=== PATIENT | female | born 1970 | race Caucasian/White ===

== ENCOUNTER → 2023-09-21 08:16 | Outpatient (REF) | payer OTHER, SELFPAY | LOC: WDC 08:16 | PROVIDERS: ATTENDING PHYSICIAN Obstetrics & Gynecology; FAMILY PHYSICIAN Internal Medicine | DX: Z12.31 Encounter for screening mammogram for malignant neoplasm of breast (principal) | CPT/HCPCS: 77063; 77067 ==

== ENCOUNTER → 2024-01-10 14:01 | Outpatient (REF) | payer OTHER, SELFPAY | LOC: HWRAD 14:01 | PROVIDERS: ATTENDING PHYSICIAN Family Medicine | DX: R10.84 Generalized abdominal pain (principal) | CPT/HCPCS: 74177; Q9967 ==

== ENCOUNTER 2024-07-27 16:45 | Emergency (ER) | payer OTHER, SELFPAY ==
[2024-07-27 17:16] VITALS: BP 124/84
--- NOTE | 2024-07-27 17:16 | ED.GENMED ---
ED Provider Triage
<Aby Peterson PA-C - Last Filed: 07/27/24 17:19>
-
Patient seen by provider in Triage?: Seen in Triage
Attestation: A medical screening examination has been initiated by a qualified medical provider. Based on the assessment performed at this time, it has been determined that an emergent medical condition may exist and the patient has been informed
that further medical evaluation and possible additional diagnostic testing may be needed.
HPI: 53yoF here with lower abd pain x 2 days. C/o pressure in suprapubic region. Radiates to the RLQ and R flank. Thought she had a UTI. Went to PCP today and UA was normal. Sent to ED to r/o appendicitis.
GENERAL: Alert , in no apparent distress
EYE: No visual abnormalities.
NECK: Trachea midline
ENT: No visible abnormalities.
LUNGS: No acute respiratory distress
NEUROLOGICAL: Alert and oriented
SKIN: Skin intact. No visible changes.
MUSCULOSKELETAL: Moving extremities normally
PSYCH: Normal and appropriate interaction.
This is a medical evaluation conducted in person to initiate diagnostic evaluation and provide initial therapeutics. Please see further documentation by the treating clinician.
Abdominal labs, UA, and CT abdomen ordered.
History of Present Illness
<Aby Peterson PA-C - Last Filed: 07/27/24 17:19>
General
Chief Complaint: Abdominal Symptoms
Time Seen by Provider: 07/28/24 00:39
<Arron Rdz, DO - Last Filed: 07/28/24 00:54>
General
Source: patient
Exam Limitations: none
History of Present Illness
History of Present Illness:
See MDM
Past History
<Arron Rdz DO - Last Filed: 07/28/24 00:54>
Past History
ED Past Medical History: None
ED Past Surgical History: Orthopedic
Social History
Tobacco: Non-smoker
Alcohol: Occasional
Phy Exam
<Arron Rdz DO - Last Filed: 07/28/24 00:54>
Physical Exam
Physical Exam:
See MDM
Course
<Aby Peterson PA-C - Last Filed: 07/27/24 17:19>
Orders/Labs/Results
Orders:
Orders
07/27/24 17:19
CT Abd/pelvis W Iv Cont Urgent
Comment:
Reason For Exam: Suprapubic, RLQ pain radiating to the R flank
07/27/24 17:24
Complete Blood Count/With Diff Urgent
Comprehensive Metabolic Panel Urgent
Lipase Urgent
07/27/24 17:25
Urinalysis Reflex To Culture Urgent
Date Specimen was Collected: 07/27/24
Time Specimen was Collected: 17:20
07/28/24 00:46
LevoFLOXacin [Levaquin] 500 mg PO NOW STA
MetroNIDAZOLE [Flagyl] 500 mg PO NOW STA
07/28/24 00:50
Ketorolac [Toradol] 30 mg IV NOW STA
07/28/24 00:51
Ketorolac [Toradol] 30 mg .ROUTE .STK-MED ONE
Abnormal Lab Results
07/27/24
17:24
WBC 12.9 H 10^3/uL
(4.8-10.8)
RBC 4.08 L 10^6/uL
(4.20-5.40)
Hgb 11.7 L g/dL
(12.0-16.0)
Hct 34.7 L %
(37.0-47.0)
Abs Immat Gran (auto) 0.1 H 10^3/uL
(0-0.05)
Absolute Neuts (auto) 9.9 H 10^3/uL
(1.4-6.5)
Absolute Monos (auto) 0.8 H 10^3/uL
(0.1-0.6)
Immature Gran % 0.6 H %
(0-0.5)
Neutrophils % 76.9 H %
(42.2-75.2)
Lymphocytes % 14.1 L %
(20.5-51.1)
Sodium 134 L mmol/L
(135-145)
Glucose 107 H mg/dl
(70-99)
Total Bilirubin 1.7 H mg/dl
(0.2-1.3)
07/27/24 17:24
07/27/24 17:24
Vital Signs
Initial and Last Documented VS:
Initial Vital Signs
Temp Pulse Resp BP Pulse Ox
98.5 F 89 16 124/84 97
07/27/24 17:16 07/27/24 17:16 07/27/24 17:16 07/27/24 17:16 07/27/24 17:16
Last Documented Vital Signs
Temp Pulse Resp BP Pulse Ox
98.5 F 89 16 124/84 97
07/27/24 17:16 07/27/24 17:16 07/27/24 17:16 07/27/24 17:16 07/27/24 17:16
<Arron Rdz, DO - Last Filed: 07/28/24 00:54>
Orders/Labs/Results
Orders:
Orders
07/27/24 17:19
CT Abd/pelvis W Iv Cont Urgent
Comment:
Reason For Exam: Suprapubic, RLQ pain radiating to the R flank
07/27/24 17:24
Complete Blood Count/With Diff Urgent
Comprehensive Metabolic Panel Urgent
Lipase Urgent
07/27/24 17:25
Urinalysis Reflex To Culture Urgent
Date Specimen was Collected: 07/27/24
Time Specimen was Collected: 17:20
07/28/24 00:46
LevoFLOXacin [Levaquin] 500 mg PO NOW STA
MetroNIDAZOLE [Flagyl] 500 mg PO NOW STA
07/28/24 00:50
Ketorolac [Toradol] 30 mg IV NOW STA
07/28/24 00:51
Ketorolac [Toradol] 30 mg .ROUTE .STK-MED ONE
Abnormal Lab Results
07/27/24
17:24
WBC 12.9 H 10^3/uL
(4.8-10.8)
RBC 4.08 L 10^6/uL
(4.20-5.40)
Hgb 11.7 L g/dL
(12.0-16.0)
Hct 34.7 L %
(37.0-47.0)
Abs Immat Gran (auto) 0.1 H 10^3/uL
(0-0.05)
Absolute Neuts (auto) 9.9 H 10^3/uL
(1.4-6.5)
Absolute Monos (auto) 0.8 H 10^3/uL
(0.1-0.6)
Immature Gran % 0.6 H %
(0-0.5)
Neutrophils % 76.9 H %
(42.2-75.2)
Lymphocytes % 14.1 L %
(20.5-51.1)
Sodium 134 L mmol/L
(135-145)
Glucose 107 H mg/dl
(70-99)
Total Bilirubin 1.7 H mg/dl
(0.2-1.3)
07/27/24 17:24
07/27/24 17:24
Vital Signs
Initial and Last Documented VS:
Initial Vital Signs
Temp Pulse Resp BP Pulse Ox
98.5 F 89 16 124/84 97
07/27/24 17:16 07/27/24 17:16 07/27/24 17:16 07/27/24 17:16 07/27/24 17:16
Last Documented Vital Signs
Temp Pulse Resp BP Pulse Ox
98.5 F 89 16 124/84 97
07/27/24 17:16 07/27/24 17:16 07/27/24 17:16 07/27/24 17:16 07/27/24 17:16
<Arron Rdz, DO - Last Filed: 07/28/24 00:54>
MDM/Problems Addressed
Differential Diagnosis Includes:
HPI and MDM Narrative:
53-year-old female presenting for evaluation of abdominal pain. She saw her PCP and was instructed to go to the hospital to rule out acute appendicitis. On my exam, her pain is more mid abdomen and left lower quadrant. Blood work and a CT was
already performed for my evaluation. Her appendix is within normal limits but she does have evidence of mild uncomplicated diverticulitis. Given her penicillin allergy, will start Levaquin and Flagyl. She denies prior history of diverticulosis
and states her last colonoscopy was 3 years ago. Discussed follow-up with GI and her PCP
Physical exam
General: Well appearing and non-toxic
HEENT: protecting airway
Neck: appears supple
CV: No evidence of cyanosis
Resp: No accessory muscle use
Abd: Non-distended. Mild mid and left lower quadrant abdominal tenderness. No rebound
Extremities: No deformities
Neuro: alert
Psych: Normal affect
Skin: Intact
Problems Addressed including Acute and Chronic Conditions affecting care:
1. Acute uncomplicated diverticulitis
Acuity: acute
Prognosis: stable
Details: Will start Levaquin and Flagyl. Patient feels comfortable going home
Differential Diagnosis (but not limited to): Appendicitis, colitis, diverticulitis, kidney stone
Testing considered: Abdominal ultrasound
Drug therapy (if applicable): OTC meds, please see d/c instruction regarding Rx drugs
Amount and/or Complexity of Data Reviewed
Clinical info obtained from: Patient
External data reviewed: N/A
Labs I independently reviewed (but not limited to): Leukocytosis
Radiology: The CT scan was personally and independently reviewed. In addition, official CT report reviewed.
Pulse Ox: not hypoxic
EKG independently reviewed: N/A
Outdoor Emergency Care Technician: N/A
Critical Care: N/A
Risk of Complication:
Social Determinants of health: Good social support
Discussed with other providers: N/A
Escalation of Care includes Admit/Obs: After being observed in the Emergency Department, pt stable for discharge.
Occasional wrong word or 'sound a like' substitutions may have occurred due to the inherent limitations of voice recognition software. Read the chart carefully and recognize, using context, where substitutions have occurred.
<Arron Rdz DO - Last Filed: 07/28/24 00:54>
*Critical Care Note
Total Time (30-74mins, 75-104mins- exclusive of procedures): Not Applicable
ED Attending Note
<Aby Peterson PA-C - Last Filed: 07/27/24 17:19>
-
Portions of this chart may have been created with voice recognition software.� Occasional wrong word or��sound alike� substitutions may have occurred due to the inherent limitations of voice recognition software.
Discharge Plan
Departure
Patient Disposition: Home (Routine Discharge)
Date of Disposition: 07/28/24
Time of Disposition: 00:54
Patient with high blood pressure during this ER visit?: No
Discharge Problem:
Diverticula of intestine
Instructions: Diverticulitis
Prescriptions:
New
metronidazole 500 mg Tablet
500 mg PO TID Qty: 21 0RF
levofloxacin 500 mg Tablet
500 mg PO DAILY Qty: 7 0RF
No Action
cholecalciferol (vitamin D3) [Vitamin D3] 25 mcg (1,000 unit) Tablet
25 mcg PO DAILY
Probiotic
1 cap PO Q2D
cyanocobalamin (vitamin B-12) 1,000 mcg Tablet
1,000 mcg PO DAILY
acetaminophen 325 mg Tablet
650 mg PO Q4HPRN PRN (Reason: mild pain) Qty: 0 0RF
ibuprofen 600 mg Tablet
600 mg PO Q4HPRN PRN (Reason: mild cramps) Qty: 0 0RF
Activity Restrictions/Additional Instructions:
Please return for any worsening symptoms.
You may return at any time if you have further concerns.
Please follow up with your doctor at the first available appointment, preferably this week.
Please discuss your diverticulosis with your line patroller.
Thank you for choosing [facility].
Interventions
Interventions:
*Risk Screen - Suicide Last Done: 07/27/24 17:16
*General Assessment Last Done: 07/27/24 17:16
*Neglect/Abuse Screening Last Done: 07/27/24 17:16
*ED COVID-19 Vaccine History Last Done: 07/27/24 17:16
Discharge Date and Time
Print Language: [place]
[2024-07-27 17:45] LABS: % Basophils 0.5 % (0-2); % Eosinophils 1.4 % (0-6); % Immature Granulocytes 0.6 % (0-0.5); % Lymphocytes 14.1 % (20.5-51.1); % Monocytes 6.5 % (1.7-9.3); % Neutrophils 76.9 % (42.2-75.2); Absolute Basophils 0.1 10^3/uL (0-0.2); Absolute Eosinophils 0.2 10^3/uL (0-0.7); Absolute Immature Granulocytes 0.1 10^3/uL (0-0.05); Absolute Lymphocytes 1.8 10^3/uL (1.2-3.4); Absolute Monocytes 0.8 10^3/uL (0.1-0.6); Absolute Neutrophils 9.9 10^3/uL (1.4-6.5); Hematocrit 34.7 % (37.0-47.0); Hemoglobin 11.7 g/dL (12.0-16.0); Mean Corp Hgb Conc. 33.7 g/dL (33.0-37.0); Mean Corpuscular Hgb 28.7 pg (27.0-31.0); Mean Platelet Volume 9.4 fL (7.4-10.4); Nucleated Red Blood Cells % 0 %; Platelet Count 301 10^3/uL (130-400); Red Blood Cell Count 4.08 10^6/uL (4.20-5.40); Red Cell Dist. Width 12.6 % (11.5-14.5); White Blood Cell Count 12.9 10^3/uL (4.8-10.8)
[2024-07-27 17:47] LABS: Urine Albumin Negative (Neg - Trace); Urine Bilirubin Negative (Negative); Urine Character Clear (Clear); Urine Color Yellow; Urine Glucose Negative (Negative); Urine Ketone Negative (Negative); Urine Leukocyte Negative (Negative); Urine Nitrite Negative (Negative); Urine Occult Blood Negative (Negative); Urine Urobilinogen Negative (Neg - 1+)
[2024-07-27 17:56] LABS: ALT (SGPT) 16 U/L (0-35); AST (SGOT) 21 U/L (14-36); Albumin 4.9 g/dl (3.5-5.0); Alkaline Phosphatase 84 U/L (38-126); Blood Urea Nitrogen 10 mg/dl (7-17); Calcium 9.1 mg/dl (8.4-10.2); Carbon Dioxide 24 mmol/L (22-30); Chloride 99 mmol/L (98-107); Glucose 107 mg/dl (70-99); Lipase 84 U/L (23-300); Potassium 3.8 mmol/L (3.5-5.1); Sodium 134 mmol/L (135-145); Total Bilirubin 1.7 mg/dl (0.2-1.3); Total Protein 7.6 g/dl (6.3-8.2); eGFR > 60.00
[2024-07-28] VITALS: BP 110/58
[2024-07-28 00:55] VITALS: BP 110/58
[2024-07-28] MEDS: TORADOL 30 MG IV (01:01)
[2024-07-28] MEDS: LEVAQUIN 500 MG PO (01:03)
[2024-07-28] MEDS: FLAGYL 500 MG PO (01:03)
== END 2024-07-28 01:10 | disposition home or self-care (01) ==
LOC: EMR 16:45
PROVIDERS: Physician Assistant; EMERGENCY PHYSICIAN Student in an Organized Health Care Education/Training Program; FAMILY PHYSICIAN Family Medicine
DX: K57.32 Diverticulitis of large intestine without perforation or abscess without bleeding (principal)
CPT/HCPCS: 99285; 96374; 74177; 80053; 81003; 83690; 85025; Q9967

== ENCOUNTER → 2024-09-21 11:54 | Outpatient (REF) | payer OTHER, SELFPAY | LOC: WDC 11:54 | PROVIDERS: ATTENDING PHYSICIAN Obstetrics & Gynecology; FAMILY PHYSICIAN Internal Medicine | DX: Z12.31 Encounter for screening mammogram for malignant neoplasm of breast (principal) | CPT/HCPCS: 77063; 77067 ==

== ENCOUNTER → 2024-09-27 08:24 | Outpatient (REF) | payer OTHER, SELFPAY | LOC: HWRAD 08:24 | PROVIDERS: ATTENDING PHYSICIAN Obstetrics & Gynecology; FAMILY PHYSICIAN Internal Medicine | DX: M54.50 Low back pain, unspecified (principal) | CPT/HCPCS: 76775; 76830; 76856 ==

== ENCOUNTER → 2024-12-17 12:50 | Outpatient (REF) | payer OTHER, SELFPAY | LOC: WDC 12:50 | PROVIDERS: ATTENDING PHYSICIAN Obstetrics & Gynecology; FAMILY PHYSICIAN Internal Medicine | DX: R92.333 Mammographic heterogeneous density, bilateral breasts (principal) | CPT/HCPCS: 76641 ==